=== PATIENT | male | born 1950 | race African-American/Black ===

== ENCOUNTER 2016-08-27 14:13 | Inpatient (IN) | payer OTHER, BC ==
[2016-08-27 16:43] VITALS: BMI 20.5
[2016-08-27] MEDS ORDERED: MENTHOL/PHENOL 1 EACH UD MM PRN (16:46)
[2016-08-27] MEDS ORDERED: MAGNESIUM CITRATE 300 ML BOTTLE PO PRN (16:46)
[2016-08-27] MEDS ORDERED: P-EPHED 60MG/TRIPROLIDI 2.5MG TABLET PO PRN (16:46)
[2016-08-27] MEDS ORDERED: NICOTINE 14 MG/24 HOURS TOPICAL PATCH TD PRN (16:46)
[2016-08-27] MEDS ORDERED: MAG HYDROX/AL HYDROX/SIMETH 30 ML UNIT-DOSE CUP PO PRN (16:46)
[2016-08-27] MEDS ORDERED: LOPERAMIDE HCL 2 MG CAPSULE PO PRN (16:46)
[2016-08-27] MEDS ORDERED: ACETAMINOPHEN 325 MG TABLET (FP) PO PRN (16:46)
[2016-08-27] MEDS ORDERED: MAGNESIUM HYDROX 2400MG/30ML ORAL SUSPENSION 30 ML CUP PO PRN (16:46)
[2016-08-27] MEDS ORDERED: IBUPROFEN 400 MG TABLET (FP) PO PRN (16:46)
[2016-08-27] MEDS ORDERED: NICOTINE POLACRILEX 2 MG GUM BC PRN (16:46)
[2016-08-27] MEDS ORDERED: guaiFENesin/D-METHORPHAN HB 10 ML UNIT-DOSE CUPS PO PRN (16:46)
--- NOTE | 2016-08-27 16:51 | HP ---
COWS - Scale Resting Pulse: 0= [place] 80 or Below Sweatin=Flushed/Facial Moisture Restless Observation: 3= Extraneous Movement Pupil Size: 0= Normal to Room Light Bone or Joint Aches: 2= Severe Diffuse Aches Runny Nose/ Eye Tearin= Runny Nose/Eyes GI Upset > 30mins: 3= Vomiting/Diarrhea Tremor Observation: 2= Slight Tremor Visible Yawning Observation: 0= None Anxiety or Irritability: 2=Irritable/Anxious Goose Flesh Skin: 3=Piloerection COWS Score: 19 Admission [facility] Chief Complaint: withdrawal sx Allergies/Adverse Reactions: Allergies Allergy/AdvReac Type Severity Reaction Status Date / Time No Known Allergies Allergy Verified 04/10/14 12:31 History of Present Illness: 65 years old male with long history of heroin nicotine dependence, has hiv asthma positive ppd weight loss, legs muscle weakness copd denies mental illness , longest sobriety months is admitted to detox Exam Limitations: No Limitations - Ebola screening Have you traveled outside of the country in the last 21 days: No Have you had contact with anyone from an Ebola affected area: No Have you been sick,other than usual withdrawal symptoms: No Do you have a fever: No - Review of Systems Constitutional: Chills, Loss of Appetite, Changes in sleep, Unexplained wgt Loss EENT: reports: Other (eye glasses) Respiratory: reports: Cough, SOB with Exertion Cardiac: reports: No Symptoms Reported GI: reports: Diarrhea, Nausea, Poor Appetite, Poor Fluid Intake, Vomiting, Abdominal cramping : reports: No Symptoms Reported Musculoskeletal: reports: Back Pain, Joint Pain, Muscle Pain, Neck Pain Integumentary: reports: Change in Color Neuro: reports: Tremors Endocrine: reports: No Symptoms Reported Hematology: reports: No Symptoms Reported Psychiatric: reports: Judgement Intact, Mood/Affect Appropiate, Orientated x3 Other Systems: Reviewed and Negative Patient History - Patient Medical History Hx Anemia: No Hx Asthma: Yes Hx Chronic Obstructive Pulmonary Disease (COPD): Yes (ventolin pump) Hx Cancer: No Hx Cardiac Disorders: No Hx Congestive Heart Failure: No Hx Hypertension: No (history of htn) Hx Hypercholesterolemia: No Hx Pacemaker: No HX Cerebrovascular Accident: No Hx Seizures: No Hx Dementia: No Hx Diabetes: No Hx Gastrointestinal Disorders: No Hx Liver Disease: No Hx Genitourinary Disorders: No Hx Sexually Transmitted Disorders: No Hx Renal Disease (ESRD): No Hx Thyroid Disease: No Hx Human Immunodeficiency Virus (HIV): Yes (diagnosed 1995) Hx Hepatitis C: Yes (diagnosed 10 yrs ago) Hx Depression: No Hx Suicide Attempt: No (den) Hx Bipolar Disorder: No Hx Schizophrenia: No - Patient Surgical History Past Surgical History: No - PPD History Previous Implant?: Yes Documented Results: Positive w/o proof Implanted On Prior R Admission?: No PPD to be Administered?: No - Smoking Cessation Smoking history: Current every day smoker Have you smoked in the past 12 months: Yes Aproximately how many cigarettes per day: 2 Cigars Per Day: 0 Hx Chewing Tobacco Use: No Initiated information on smoking cessation: Yes 'Breaking Loose' booklet given: 08/27/16 - Substance & Tx. History Hx Alcohol Use: No Hx Substance Use: Yes Substance Use Type: Opiates Hx Substance Use Treatment: Yes - Substances Abused Heroin Route: Injection Frequency: Daily Amount used: 2-4 bags Age of first use: 17 Date of Last Use: 08/26/16 Family Disease History - Family Disease History Family Disease History: Other: Father (), Mother () Admission Physical Exam BHS - Vital Signs Vital Signs: Vital Signs - 24 hr 08/27/16 16:42 Temperature 96.6 F L Pulse Rate 77 Respiratory 20 Rate Blood Pressure 132/86 - Physical General Appearance: Yes: Appropriately Dressed, Mild Distress, Thin, Tremorous, Irritable, Sweating, Anxious HEENTM: Yes: Hearing grossly Normal, Normal ENT Inspection, Normocephalic, Normal Voice, Other (eye glasses) Respiratory: Yes: Chest Non-Tender, Lungs Clear, Normal Breath Sounds, No Respiratory Distress, No Accessory Muscle Use Neck: Yes: Supple, Trachea in good position Breast: Yes: Breasts Symetrical Cardiology: Yes: Regular Rhythm, Regular Rate, S1, S2 Abdominal: Yes: Non Tender, Soft Genitourinary: Yes: Within Normal Limits Back: Yes: Normal Inspection Musculoskeletal: Yes: Gait Steady (cane), Muscle weakness (arthritis of the hip) Extremities: Yes: Non-Tender, Tremors, Other (arthritis of the left hip) Neurological: Yes: Fully Oriented, Alert, Normal Mood/Affect, Normal Response Integumentary: Yes: Warm, Track Mercedes Lymphatic: Yes: Within Normal Limits - Diagnostic (1) Asthma Current Visit: Yes Status: Acute Qualifiers: Asthma severity: mild intermittent Asthma complication type: with status asthmaticus Qualified Code(s): J45.22 - Mild intermittent asthma with status asthmaticus (2) COPD (chronic obstructive pulmonary disease) Current Visit: Yes Status: Acute Qualifiers: COPD type: emphysema Emphysema type: other Qualified Code(s): J43.8 - Other emphysema (3) HIV disease Current Visit: Yes Status: Acute (4) Opioid dependence with withdrawal Current Visit: Yes Status: Acute (5) Hepatitis C antibody test positive Current Visit: Yes Status: Resolved (6) Positive PPD, treated Current Visit: Yes Status: Resolved (7) Weight loss Current Visit: Yes Status: Acute (8) Nicotine dependence Current Visit: Yes Status: Acute Qualifiers: Nicotine product type: cigarettes Substance use status: uncomplicated Qualified Code(s): F17.210 - Nicotine dependence, cigarettes, uncomplicated (9) Weakness of both legs Current Visit: Yes Status: Chronic Comment: x 6 years cane Cleared for Admission [facility] - Detox or Rehab [facility] Level of Care: Medically Managed Detox Regimen/Protocol: Methadone [facility] Breath Alcohol Content Breath Alcohol Content: 0 Urine Drug Screen - Results Drug Screen Negative: No Urine Drug Screen Results: OPI-Opiates
[2016-08-27] MEDS ORDERED: METHADONE HCL 10 MG TABLET (FOR DETOX USE ONLY) PO ONE ×2 (17:09→23:00)
[2016-08-27] MEDS ORDERED: ALBUTEROL SO4 6.7 GM HFA INHALER IH PRN (17:14)
[2016-08-27] MEDS ORDERED: ONDANSETRON *ODT* 4 MG TABLET SL PRN (17:15)
[2016-08-27] MEDS ORDERED: METHADONE HCL 10 MG TABLET (FOR DETOX USE ONLY) ONE (19:58)
[2016-08-27] MEDS: diazePAM 5 MG TABLET PO PRN (20:02)
[2016-08-27] MEDS: THIAMINE HCL 100 MG TABLET (FP) PO SCH (22:34)
[2016-08-27] MEDS: ABACAVIR SULFATE 300 MG TABLET PO SCH (22:34)
[2016-08-27] MEDS: BUDESONIDE/FORMETEROL FUMARATE 80/4.5 mcg INHALER IH SCH (22:35)
[2016-08-27 23:08] LABS: PH,URINE 5.5 (5.0-8.0); URINE APPEARANCE CLEAR; URINE BILIRUBIN NEGATIVE (NEGATIVE); URINE BLOOD NEGATIVE (NEGATIVE); URINE COLOR LT. YELLOW; URINE GLUCOSE (UA) NEGATIVE (NEGATIVE); URINE KETONE NEGATIVE (NEGATIVE); URINE LEUK ESTERASE NEGATIVE (NEGATIVE); URINE NITRITE NEGATIVE (NEGATIVE); URINE PROTEIN TRACE (NEGATIVE); URINE UROBILINOGEN 0.2 E.U/dl E.U./dl (0.2-1.0)
[2016-08-27] MEDS: RITONAVIR/LOPINAVIR 50MG/200MG 1 COMBO TABLET PO SCH (23:26)
--- NOTE | 2016-08-28 09:26 | PN ---
BHS COWS - Scale Resting Pulse: 1= [place] 81-100 Sweatin=Flushed/Facial Moisture Restless Observation: 3= Extraneous Movement Pupil Size: 1= Pupils >than Normal Bone or Joint Aches: 2= Severe Diffuse Aches Runny Nose/ Eye Tearin= Runny Nose/Eyes GI Upset > 30mins: 3= Vomiting/Diarrhea Tremor Observation of Outstretched Hands: 2= Slight Tremor Visible Yawning Observation: 1= 1-2x During Session Anxiety or Irritability: 2=Irritable/Anxious Goose Flesh Skin: 0=Smooth Skin COWS Score: 19 BHS Progress Note (SOAP) Subjective: ALERT,IRRITABLE,ANXIOUS,INTERRUPTED SLEEP,TREMOR,PAIN IN THE BODY AND BACK Objective: 08/28/16 09:46 Vital Signs Temperature 97.8 F 08/28/16 06:40 Pulse Rate 82 08/28/16 06:40 Respiratory Rate 16 08/28/16 06:40 Blood Pressure 141/86 08/28/16 06:40 O2 Sat by Pulse Oximetry (%) EKG NSR WITH SINUS ARRHYTHMIA NORMAL ECG LABS PENDING Assessment: 08/28/16 09:47 WITHDRAWAL SYMPTOM Plan: CONTINUE DETOX
[2016-08-28] MEDS ORDERED: METHADONE HCL 10 MG TABLET (FOR DETOX USE ONLY) PO ONE (10:00)
[2016-08-28 10:10] LABS: MCH 24.4 pg (25.7-33.7); MCHC 30.5 g/dl (32.0-35.9); MEAN PLT VOLUME 10.6 fl (7.5-11.1); PLATELET COUNT 213 K/MM3 (134-434); RDW 14.4 % (11.9-15.9); WHITE BLOOD COUNT 6.9 K/mm3 (4.0-10.0)
[2016-08-28] MEDS: RITONAVIR/LOPINAVIR 50MG/200MG 1 COMBO TABLET PO SCH ×2 (10:22→22:22)
[2016-08-28] MEDS: PRENATAL VITAMINS W/ FOLIC ACID TABLET (FP) PO SCH (10:22)
[2016-08-28] MEDS: ABACAVIR SULFATE 300 MG TABLET PO SCH ×2 (10:22→22:22)
[2016-08-28] MEDS: lamiVUDine 150 MG TABLET PO SCH (10:22)
[2016-08-28 10:23] LABS: ALBUMIN 3.8 g/dl (3.4-5.0); CALCIUM 8.7 mg/dL (8.5-10.1); CREATININE 2.4 mg/dL (0.7-1.3)
[2016-08-28] MEDS: BUDESONIDE/FORMETEROL FUMARATE 80/4.5 mcg INHALER IH SCH ×2 (10:23→22:22)
[2016-08-28 10:25] LABS: BILIRUBIN,TOTAL 0.9 mg/dL (0.2-1.0); TOT PROT 8.1 g/dl (6.4-8.2)
--- NOTE | 2016-08-28 16:32 | EKG ---
Test Reason : Blood Pressure : / mmHG Vent. Rate : 080 BPM Atrial Rate : 080 BPM P-R Int : 166 ms QRS Dur : 094 ms QT Int : 354 ms P-R-T Axes : 068 058 069 degrees QTc Int : 408 ms NORMAL SINUS RHYTHM WITH SINUS ARRHYTHMIA NORMAL ECG NO PREVIOUS ECGS AVAILABLE Confirmed by MI GARCIA, MUKESH ([id number]) on 08/28/2016 4:32:21 PM Referred By: Confirmed By:MUKESH STARK MD
[2016-08-28] MEDS: THIAMINE HCL 100 MG TABLET (FP) PO SCH (22:22)
[2016-08-29] MEDS: diazePAM 5 MG TABLET PO PRN ×2 (05:07→10:17)
[2016-08-29] MEDS ORDERED: METHADONE HCL 5 MG TABLET (FOR DETOX USE ONLY) PO ONE (10:00)
[2016-08-29] MEDS: BUDESONIDE/FORMETEROL FUMARATE 80/4.5 mcg INHALER IH SCH ×2 (10:16→22:19)
[2016-08-29] MEDS: ABACAVIR SULFATE 300 MG TABLET PO SCH ×2 (10:17→22:18)
[2016-08-29] MEDS: RITONAVIR/LOPINAVIR 50MG/200MG 1 COMBO TABLET PO SCH ×2 (10:17→22:19)
[2016-08-29] MEDS: PRENATAL VITAMINS W/ FOLIC ACID TABLET (FP) PO SCH (10:17)
[2016-08-29] MEDS: lamiVUDine 150 MG TABLET PO SCH (10:17)
--- NOTE | 2016-08-29 12:06 | PN ---
BHS COWS - Scale Resting Pulse: 1= [place] 81-100 Sweatin=Flushed/Facial Moisture Restless Observation: 1= Difficult to Sit Still Pupil Size: 0= Normal to Room Light Bone or Joint Aches: 2= Severe Diffuse Aches Runny Nose/ Eye Tearin= Runny Nose/Eyes GI Upset > 30mins: 2= Nausea/Diarrhea Tremor Observation of Outstretched Hands: 2= Slight Tremor Visible Yawning Observation: 1= 1-2x During Session Anxiety or Irritability: 2=Irritable/Anxious Goose Flesh Skin: 0=Smooth Skin COWS Score: 15 BHS Progress Note (SOAP) Subjective: ANXIETY,TREMORS,INTERRUPTED SLEEP,RESTLESS,SWEATING. Objective: 08/29/16 12:04 Vital Signs - 8 hr 08/29/16 08/29/16 06:12 09:30 Temperature 98.7 F 98.3 F Pulse Rate 94 H 97 H Respiratory 18 18 Rate Blood Pressure 146/92 142/90 Laboratory Tests 08/27/16 08/28/16 08/28/16 22:16 06:30 06:30 WBC 6.9 RBC 4.85 Hgb 11.8 Hct 38.9 MCV 80.0 MCHC 30.5 L RDW 14.4 D Plt Count 213 MPV 10.6 Sodium 138 Potassium 3.6 D Chloride 98 Carbon Dioxide 32 Anion Gap 8 BUN 38 H D Creatinine 2.4 H D Creat Clearance w eGFR 27.48 Random Glucose 111 H D Calcium 8.7 Total Bilirubin 0.9 AST 129 H D ALT 217 H D Alkaline Phosphatase 106 D Total Protein 8.1 Albumin 3.8 Urine Color Lt. yellow Urine Appearance Clear Urine pH 5.5 Ur Specific [place] 1.025 Urine Protein Trace H Urine Glucose (UA) Negative Urine Ketones Negative Urine Blood Negative Urine Nitrite Negative Urine Bilirubin Negative Urine Urobilinogen 0.2 e.u/dl Ur Leukocyte Esterase Negative RPR Titer 08/28/16 06:30 WBC RBC Hgb Hct MCV MCHC RDW Plt Count MPV Sodium Potassium Chloride Carbon Dioxide Anion Gap BUN Creatinine Creat Clearance w eGFR Random Glucose Calcium Total Bilirubin AST ALT Alkaline Phosphatase Total Protein Albumin Urine Color Urine Appearance Urine pH Ur Specific [place] Urine Protein Urine Glucose (UA) Urine Ketones Urine Blood Urine Nitrite Urine Bilirubin Urine Urobilinogen Ur Leukocyte Esterase RPR Titer Nonreactive LABS NOTED,REPEAT BMP Assessment: 08/29/16 12:05 WITHDRAWAL SX. Plan: CONTINUE DETOX
[2016-08-29] MEDS: cloNIDine HCL 0.1 MG TABLET PO PRN (13:03)
[2016-08-29] MEDS: THIAMINE HCL 100 MG TABLET (FP) PO SCH (22:18)
[2016-08-29] MEDS: diphenhydrAMINE HCL 50 MG CAPSULE PO PRN (22:18)
[2016-08-30] MEDS: diazePAM 5 MG TABLET PO PRN ×2 (05:33→10:17)
[2016-08-30] MEDS ORDERED: METHADONE HCL 5 MG TABLET (FOR DETOX USE ONLY) PO ONE (10:00)
[2016-08-30] MEDS: PRENATAL VITAMINS W/ FOLIC ACID TABLET (FP) PO SCH (10:17)
[2016-08-30] MEDS: cloNIDine HCL 0.1 MG TABLET PO PRN (10:17)
[2016-08-30] MEDS: RITONAVIR/LOPINAVIR 50MG/200MG 1 COMBO TABLET PO SCH ×2 (10:17→22:18)
[2016-08-30] MEDS: ABACAVIR SULFATE 300 MG TABLET PO SCH ×2 (10:17→22:18)
[2016-08-30] MEDS: BUDESONIDE/FORMETEROL FUMARATE 80/4.5 mcg INHALER IH SCH ×2 (10:17→22:18)
[2016-08-30] MEDS: lamiVUDine 150 MG TABLET PO SCH (10:18)
--- NOTE | 2016-08-30 10:41 | PN ---
BHS Progress Note (SOAP) Subjective: shaky, anxious, poor sleep Objective: 08/30/16 10:41 Laboratory Tests 08/27/16 08/28/16 08/28/16 22:16 06:30 06:30 WBC 6.9 RBC 4.85 Hgb 11.8 Hct 38.9 MCV 80.0 MCHC 30.5 L RDW 14.4 D Plt Count 213 MPV 10.6 Sodium 138 Potassium 3.6 D Chloride 98 Carbon Dioxide 32 Anion Gap 8 BUN 38 H D Creatinine 2.4 H D Creat Clearance w eGFR 27.48 Random Glucose 111 H D Calcium 8.7 Total Bilirubin 0.9 AST 129 H D ALT 217 H D Alkaline Phosphatase 106 D Total Protein 8.1 Albumin 3.8 Urine Color Lt. yellow Urine Appearance Clear Urine pH 5.5 Ur Specific [place] 1.025 Urine Protein Trace H Urine Glucose (UA) Negative Urine Ketones Negative Urine Blood Negative Urine Nitrite Negative Urine Bilirubin Negative Urine Urobilinogen 0.2 e.u/dl Ur Leukocyte Esterase Negative RPR Titer 08/28/16 06:30 WBC RBC Hgb Hct MCV MCHC RDW Plt Count MPV Sodium Potassium Chloride Carbon Dioxide Anion Gap BUN Creatinine Creat Clearance w eGFR Random Glucose Calcium Total Bilirubin AST ALT Alkaline Phosphatase Total Protein Albumin Urine Color Urine Appearance Urine pH Ur Specific [place] Urine Protein Urine Glucose (UA) Urine Ketones Urine Blood Urine Nitrite Urine Bilirubin Urine Urobilinogen Ur Leukocyte Esterase RPR Titer Nonreactive Vital Signs - 24 hr 08/29/16 08/29/16 08/29/16 13:08 17:29 22:04 Temperature 98.4 F 98.0 F 97.1 F L Pulse Rate 93 H 85 97 H Respiratory 18 18 18 Rate Blood Pressure 145/88 122/70 129/75 08/30/16 08/30/16 08/30/16 00:20 06:30 09:28 Temperature 96.9 F L 98.9 F Pulse Rate 86 87 Respiratory 18 18 18 Rate Blood Pressure 165/99 175/100 Assessment: 08/30/16 10:41 ongoing withdrawal Plan: continue detox protocol fu repeat labs
[2016-08-30 11:13] LABS: CALCIUM 9.2 mg/dL (8.5-10.1); CREATININE 1.7 mg/dL (0.7-1.3)
[2016-08-30] MEDS: THIAMINE HCL 100 MG TABLET (FP) PO SCH (22:18)
[2016-08-30] MEDS: diphenhydrAMINE HCL 50 MG CAPSULE PO PRN (22:19)
[2016-08-31] MEDS ORDERED: METHADONE HCL 10 MG TABLET (FOR DETOX USE ONLY) PO ONE (10:00)
[2016-08-31] MEDS: PRENATAL VITAMINS W/ FOLIC ACID TABLET (FP) PO SCH (10:19)
[2016-08-31] MEDS: ABACAVIR SULFATE 300 MG TABLET PO SCH ×2 (10:19→22:15)
[2016-08-31] MEDS: RITONAVIR/LOPINAVIR 50MG/200MG 1 COMBO TABLET PO SCH ×2 (10:19→22:15)
[2016-08-31] MEDS: cloNIDine HCL 0.1 MG TABLET PO PRN (10:20)
[2016-08-31] MEDS: BUDESONIDE/FORMETEROL FUMARATE 80/4.5 mcg INHALER IH SCH ×2 (10:20→22:16)
[2016-08-31] MEDS: lamiVUDine 150 MG TABLET PO SCH (10:21)
--- NOTE | 2016-08-31 14:16 | PN ---
BHS Progress Note (SOAP) Subjective: Sweating, anxious, restless Objective: 08/31/16 14:08 Last Vital Signs Temp Pulse Resp BP Pulse Ox 96.8 F L 89 18 138/85 08/31/16 13:33 08/31/16 13:33 08/31/16 13:33 08/31/16 13:33 Laboratory Tests 08/27/16 08/28/16 08/28/16 22:16 06:30 06:30 WBC 6.9 RBC 4.85 Hgb 11.8 Hct 38.9 MCV 80.0 MCHC 30.5 L RDW 14.4 D Plt Count 213 MPV 10.6 Sodium 138 Potassium 3.6 D Chloride 98 Carbon Dioxide 32 Anion Gap 8 BUN 38 H D Creatinine 2.4 H D Creat Clearance w eGFR 27.48 Random Glucose 111 H D Calcium 8.7 Total Bilirubin 0.9 AST 129 H D ALT 217 H D Alkaline Phosphatase 106 D Total Protein 8.1 Albumin 3.8 Urine Color Lt. yellow Urine Appearance Clear Urine pH 5.5 Ur Specific [place] 1.025 Urine Protein Trace H Urine Glucose (UA) Negative Urine Ketones Negative Urine Blood Negative Urine Nitrite Negative Urine Bilirubin Negative Urine Urobilinogen 0.2 e.u/dl Ur Leukocyte Esterase Negative RPR Titer 08/28/16 08/30/16 06:30 08:00 WBC RBC Hgb Hct MCV MCHC RDW Plt Count MPV Sodium 137 Potassium 4.7 D Chloride 102 Carbon Dioxide 30 Anion Gap 5 L BUN 25 H D Creatinine 1.7 H D Creat Clearance w eGFR Random Glucose 79 D Calcium 9.2 Total Bilirubin AST ALT Alkaline Phosphatase Total Protein Albumin Urine Color Urine Appearance Urine pH Ur Specific [place] Urine Protein Urine Glucose (UA) Urine Ketones Urine Blood Urine Nitrite Urine Bilirubin Urine Urobilinogen Ur Leukocyte Esterase RPR Titer Nonreactive Labs noted: serum creatinine 1.7 (was 2.4), BUN 25 (was 38) Assessment: 08/31/16 14:12 Withdrawal symptoms Noted with PAULY vs Chronic renal insufficiency (CRI) Plan: Continue detox PAULY vs CRI: encouraged to drink lots of water, repeat BMP, follow up with PCP post discharge for monitoring
[2016-08-31] MEDS: THIAMINE HCL 100 MG TABLET (FP) PO SCH (22:15)
[2016-08-31] MEDS: diphenhydrAMINE HCL 50 MG CAPSULE PO PRN (22:16)
[2016-09-01] MEDS ORDERED: METHADONE HCL 5 MG TABLET (FOR DETOX USE ONLY) PO ONE (06:00)
[2016-09-01 10:10] VITALS: BP 150/83; PULSE 91; TEMP 99.2
--- NOTE | 2016-09-01 10:10 | DS ---
[facility] Detox Discharge Summary Admission Date: 08/27/16 Discharge Date: 09/01/16 - History Present History: Opioid Dependence Additional Comments: Withdrawal Symptoms Pertinent Past History: HIV Asthma HTN Hep C + PPD - Physical Exam Results Vital Signs: Vital Signs Temperature 97.9 F 09/01/16 06:35 Pulse Rate 77 09/01/16 06:35 Respiratory Rate 18 09/01/16 06:35 Blood Pressure 158/98 09/01/16 06:35 O2 Sat by Pulse Oximetry (%) Laboratory Last Values WBC 6.9 K/mm3 (4.0-10.0) 08/28/16 06:30 RBC 4.85 M/mm3 (4.00-5.60) 08/28/16 06:30 Hgb 11.8 GM/dL (11.7-16.9) 08/28/16 06:30 Hct 38.9 % (35.4-49) 08/28/16 06:30 MCV 80.0 fl (80-96) 08/28/16 06:30 MCHC 30.5 g/dl (32.0-35.9) L 08/28/16 06:30 RDW 14.4 % (11.9-15.9) D 08/28/16 06:30 Plt Count 213 K/MM3 (134-434) 08/28/16 06:30 MPV 10.6 fl (7.5-11.1) 08/28/16 06:30 Sodium 137 mmol/L (136-145) 08/30/16 08:00 Potassium 4.7 mmol/L (3.5-5.1) D 08/30/16 08:00 Chloride 102 mmol/L (98-107) 08/30/16 08:00 Carbon Dioxide 30 mmol/L (21-32) 08/30/16 08:00 Anion Gap 5 (8-16) L 08/30/16 08:00 BUN 25 mg/dL (7-18) H D 08/30/16 08:00 Creatinine 1.7 mg/dL (0.7-1.3) H D 08/30/16 08:00 Creat Clearance w eGFR 27.48 (>60) 08/28/16 06:30 Random Glucose 79 mg/dL (74-106) D 08/30/16 08:00 Calcium 9.2 mg/dL (8.5-10.1) 08/30/16 08:00 Total Bilirubin 0.9 mg/dL (0.2-1.0) 08/28/16 06:30 AST 129 U/L (15-37) H D 08/28/16 06:30 ALT 217 U/L (12-78) H D 08/28/16 06:30 Alkaline Phosphatase 106 U/L (45-117) D 08/28/16 06:30 Total Protein 8.1 g/dl (6.4-8.2) 08/28/16 06:30 Albumin 3.8 g/dl (3.4-5.0) 08/28/16 06:30 Urine Color Lt. yellow 08/27/16 22:16 Urine Appearance Clear 08/27/16 22:16 Urine pH 5.5 (5.0-8.0) 08/27/16 22:16 Ur Specific [place] 1.025 (1.001-1.035) 08/27/16 22:16 Urine Protein Trace (NEGATIVE) H 08/27/16 22:16 Urine Glucose (UA) Negative (NEGATIVE) 08/27/16 22:16 Urine Ketones Negative (NEGATIVE) 08/27/16 22:16 Urine Blood Negative (NEGATIVE) 08/27/16 22:16 Urine Nitrite Negative (NEGATIVE) 08/27/16 22:16 Urine Bilirubin Negative (NEGATIVE) 08/27/16 22:16 Urine Urobilinogen 0.2 e.u/dl E.U./dl (0.2-1.0) 08/27/16 22:16 Ur Leukocyte Esterase Negative (NEGATIVE) 08/27/16 22:16 RPR Titer Nonreactive (NONREACTIVE) 08/28/16 06:30 labs noted Pertinent Admission Physical Exam Findings: Withdrawal Symptoms - Treatment Hospital Course: Detox Protocol Followed, Detoxed Safely, Responded well, Discharged Condition Good, Rehab Referral Accepted - Medication Discharge Medications: Ambulatory Orders Ritonavir/Lopinavir [Kaletra 200Mg/50Mg -] 2 combo PO BID 04/10/14 Abacavir Sulfate [Abacavir] 300 mg PO DAILY 08/27/16 Albuterol Sulfate Inhaler - [Ventolin HFA Inhaler -] 2 inh PO Q4H PRN 08/27/16 Budesonide/Formeterol Fumarate [SYMBICORT 80/4.5mcg -] 2 inh PO BID 08/27/16 Cholecalciferol (Vitamin D3) [Vitamin D3] 50,000 unit PO WEEKLY 08/27/16 Lamivudine [Epivir -] 150 mg PO DAILY 08/27/16 Megestrol Acetate [Megace -] 40 mg PO DAILY 08/27/16 - Diagnosis (1) Asthma Current Visit: Yes Status: Acute Qualifiers: Asthma severity: mild intermittent Asthma complication type: with status asthmaticus Qualified Code(s): J45.22 - Mild intermittent asthma with status asthmaticus (2) HIV disease Current Visit: Yes Status: Chronic (3) Opioid dependence with withdrawal Current Visit: Yes Status: Acute (4) Hepatitis C antibody test positive Current Visit: Yes Status: Resolved (5) Hypertension Current Visit: No Status: Chronic Qualifiers: Hypertension type: essential hypertension Qualified Code(s): I10 - Essential (primary) hypertension - AMA Did Patient Leave Against Medical Advice: No
[2016-09-01] MEDS: lamiVUDine 150 MG TABLET PO SCH (10:16)
[2016-09-01] MEDS: PRENATAL VITAMINS W/ FOLIC ACID TABLET (FP) PO SCH (10:17)
[2016-09-01] MEDS: RITONAVIR/LOPINAVIR 50MG/200MG 1 COMBO TABLET PO SCH (10:17)
[2016-09-01] MEDS: BUDESONIDE/FORMETEROL FUMARATE 80/4.5 mcg INHALER IH SCH (10:17)
[2016-09-01] MEDS: ABACAVIR SULFATE 300 MG TABLET PO SCH (10:17)
== END 2016-09-01 10:46 | disposition home or self-care (01) | DRG 897 ==
LOC: YASAS 14:13 → Y3N 19:16
PROVIDERS: ADMIT Internal Medicine; ATTEND Internal Medicine
PROC: HZ2ZZZZ Detoxification Services for Substance Abuse Treatment (ICD-10-PCS; principal; 2016-08-27)
DX: F19.230 Other psychoactive substance dependence with withdrawal, uncomplicated (principal); J45.22 Mild intermittent asthma with status asthmaticus; F11.23 Opioid dependence with withdrawal; Z21 Asymptomatic human immunodeficiency virus [HIV] infection status; J43.8 Other emphysema; I10 Essential (primary) hypertension; B18.2 Chronic viral hepatitis C; I49.9 Cardiac arrhythmia, unspecified; Z72.0 Tobacco use; R76.11 Nonspecific reaction to tuberculin skin test without active tuberculosis; M62.81 Muscle weakness (generalized); N28.9 Disorder of kidney and ureter, unspecified; Z87.898 Personal history of other specified conditions
CPT/HCPCS: 36415; 71020-TC; 80048; 80053; 81003; 85027; 86593; 93005; 93010